=== PATIENT | male | born 1950 | race African-American/Black ===

== ENCOUNTER 2020-02-05 23:37 | Inpatient (IN) ==
[2020-02-06] MEDS ORDERED: SODIUM CHLORIDE 0.9% 1,000 ML IV STA (00:19)
[2020-02-06 00:29] LABS: Basophils % 0.3 % (0.0-0.8); Eosinophils % 0.3 % (0.00-10.9); Hematocrit 41.5 VOL% (42.0-52.0); Hemoglobin 13.7 GM/DL (14.0-18.0); Immature Granulocytes % 1.2 %; Immature Granulocytes Absolute 0.04 #; Lymphocytes # 1.2 10*3/uL (1.4-4.0); Lymphocytes % 35.1 % (21.2-54.2); Mean Platelet Volume 12.5 FL (9.6-12.0); Monocytes % 6.4 % (1.7-12.7); Neutrophils % 56.7 % (38.7-73.9); Red Blood Count 4.94 MC/CUMM (3.8-5.5); Red Cell Distribution Width 15.6 % (9.3-17.3); White Blood Count 3.3 T/CUMM (4-12)
[2020-02-06 00:33] LABS: Platelet Count 84 T/CUMM (130-400)
[2020-02-06] MEDS ORDERED: ENOXAPARIN 30 MG/0.3 ML SYRINGE SUBCUT STA (00:50)
[2020-02-06] MEDS ORDERED: ENOXAPARIN 80 MG/0.8 ML SYRINGE SUBCUT ONE (00:55)
[2020-02-06 00:57] LABS: ABG Base Excess -6.1 MMOL/L (-2.5-2.5); ABG HCO3 19.4 MMOL/L (20-26); ABG Oxygen Saturation 97.8 % (95-100); ABG PCO2 25.2 MM HG (35-48); ABG PH 7.431 (7.35-7.45); ABG PO2 90.8 MM HG (80-95); ABG TCO2 14.8 MMOL/L (23-27)
[2020-02-06 01:03] LABS: Albumin 2.6 G/DL (3.4-5.0); Bilirubin,Total 0.6 MG/DL (0.2-1.0); Calcium 8.2 MG/DL (8.5-10.1); Osmolality,Calculated 277.5 MOS/KG (273-304)
[2020-02-06 02:22] LABS: Band Neutrophils 4 % (0-10); Eosinophils 1 % (0-10); Lymphocytes 38 % (20-55); Platelet Estimate Decreased; Segmented Neutrophils 52 % (50-85); Total Cells Counted 100
[2020-02-06 02:29] LABS: INR 1.2; PT Patient Result 12.8 SECS (9.8-11.9)
[2020-02-06 02:49] LABS: Ferritin 627.6 ng/ml (26-388)
[2020-02-06 03:18] LABS: ABG Base Excess -11.1 MMOL/L (-2.5-2.5); ABG Oxygen Saturation 97.5 % (95-100); ABG PO2 116.4 MM HG (80-95); ABG TCO2 17.2 MMOL/L (23-27)
[2020-02-06] MEDS ORDERED: SODIUM BICARBONATE 50 MEQ/50 ML VIAL IV STA (03:23)
[2020-02-06] MEDS ORDERED: PIPERACILLIN/TAZOBACTAM 3,375 MG in SODIUM CHLORIDE 0.9% 100 ML IV SCH (03:30)
[2020-02-06] MEDS ORDERED: ONDANSETRON 4 MG/2 ML VIAL IV PRN (03:54)
[2020-02-06] MEDS ORDERED: LACTATED RINGERS 1,000 ML IV SCH (04:00)
[2020-02-06] MEDS ORDERED: propofoL 200 MG/20 ML VIAL IV ONE (04:07)
[2020-02-06] MEDS ORDERED: GLUCAGON 1 MG VIAL IM PRN (04:18)
[2020-02-06] MEDS ORDERED: DEXTROSE 50% 25 GM/50 ML VIAL IV PRN (04:18)
[2020-02-06] MEDS ORDERED: PHENYLEPHRINE DRIP 40 MG/250 ML PREMIX IV ONE (04:48)
[2020-02-06] MEDS ORDERED: PHENYLEPHRINE DRIP 40 MG/250 ML PREMIX IV PRN (04:49)
[2020-02-06] MEDS ORDERED: AZITHROMYCIN INJ 500 MG in SODIUM CHLORIDE 0.9% 250 ML IV SCH (05:30)
[2020-02-06] MEDS ORDERED: INSULIN LISPRO 100 UNIT/ML SUBCUT SCH (06:00)
[2020-02-06] MEDS ORDERED: ROCURONIUM 100 MG/10 ML VIAL IV ONE (07:00)
[2020-02-06] MEDS ORDERED: ETOMIDATE 20 MG/10 ML VIAL IV ONE (07:00)
[2020-02-06] MEDS ORDERED: MEROPENEM 500 MG in SODIUM CHLORIDE 0.9% 100 ML IV SCH (07:30)
[2020-02-06 08:28] VITALS: BP 90/65
[2020-02-06] MEDS ORDERED: FAMOTIDINE 20 MG/2 ML VIAL IV SCH (09:00)
[2020-02-06] MEDS ORDERED: ASCORBIC ACID 500 MG TABLET PO SCH (09:00)
[2020-02-06] MEDS ORDERED: CLOPIDOGREL 75 MG TABLET PO SCH (09:00)
[2020-02-06] MEDS ORDERED: ASPIRIN 325 MG TABLET PO SCH (09:00)
[2020-02-06] MEDS ORDERED: CHOLECALCIFEROL 1,000 UNIT TABLET PO SCH (09:00)
[2020-02-06] MEDS ORDERED: levETIRAcetam LIQUID 100 MG/ML 30 ML/BOTTLE PO SCH (09:00)
[2020-02-06] MEDS ORDERED: HALOPERIDOL 1 MG TABLET PO SCH (09:00)
[2020-02-06] MEDS ORDERED: CETIRIZINE 1 MG/ML 30 ML/BOTTLE PO SCH (09:00)
[2020-02-06] MEDS ORDERED: MEMANTINE 10 MG TABLET PO SCH (09:00)
[2020-02-06] MEDS ORDERED: LORazepam 1 MG TABLET PO SCH (09:00)
[2020-02-06] MEDS ORDERED: GABAPENTIN 400 MG CAPSULE PO SCH (09:00)
[2020-02-06] MEDS ORDERED: ZINC OXIDE PASTE 113 GM TUBE TOP SCH (09:00)
[2020-02-06] MEDS ORDERED: hydroCHLOROthiazide 25 MG TABLET PO SCH (09:00)
[2020-02-06] MEDS ORDERED: DEXAMETHASONE 10 MG/1 ML VIAL IV SCH (09:00)
[2020-02-06] MEDS ORDERED: POTASSIUM CHLORIDE 20 MEQ TABLET PO SCH (09:00)
[2020-02-06] MEDS ORDERED: SERTRALINE 100 MG TABLET PO SCH (09:00)
[2020-02-06] MEDS ORDERED: FUROSEMIDE 20 MG TABLET PO SCH (09:00)
[2020-02-06] MEDS ORDERED: hydrALAZINE 25 MG TABLET PO SCH (09:00)
[2020-02-06] MEDS ORDERED: rOPINIRole 0.25 MG TABLET PO SCH (09:00)
[2020-02-06] MEDS ORDERED: FONDAPARINUX 7.5 MG/0.6 ML SYRINGE SUBCUT SCH (17:00)
[2020-02-06] MEDS ORDERED: ENOXAPARIN 80 MG/0.8 ML SYRINGE SUBCUT SCH (17:00)
[2020-02-06] MEDS ORDERED: MIRTAZAPINE 15 MG TABLET PO SCH (21:00)
[2020-02-06] MEDS ORDERED: DONEPEZIL 10 MG TABLET PO SCH (21:00)
[2020-02-06] MEDS ORDERED: ATORVASTATIN 80 MG TABLET PO SCH (21:00)
[2020-02-08] MEDS ORDERED: AZITHROMYCIN 250 MG TABLET PO SCH (09:00)
== END 2020-02-06 08:24 | disposition expired | DRG 208 ==
LOC: EDUNIT# → EDBD → N.ED 23:37 → N.EDINP 02-06 03:54 → N.CC 02-06 06:40
PROVIDERS: ADMIT Internal Medicine; ATTEND Internal Medicine